=== PATIENT | male | born 1950 ===

== ENCOUNTER 2018-02-12 00:56 | Outpatient (CLI) | payer MEDICARE, OTHER | END 2018-02-12 23:59 | disposition home or self-care (01) | LOC: DIABETIC 00:56 | PROVIDERS: ATTEND Specialist | DX: E11.65 Type 2 diabetes mellitus with hyperglycemia (principal); I10 Essential (primary) hypertension; E78.2 Mixed hyperlipidemia; E89.0 Postprocedural hypothyroidism; E21.0 Primary hyperparathyroidism; Z79.82 Long term (current) use of aspirin; Z79.899 Other long term (current) drug therapy | CPT/HCPCS: G0108 ==